=== PATIENT | female | born 1965 | race Caucasian/White ===

== ENCOUNTER 2017-04-20 14:06 | Outpatient (CLI) | payer OTHER ==
[~2017-04-20 14:06] MED LIST: NEURONTIN300 MG PO; TAMOXIFEN CITRA20 MG PO
== END 2017-04-20 14:12 | disposition home or self-care (01) ==
LOC: EKG 14:06
DX: Z01.811 Encounter for preprocedural respiratory examination (principal)

== ENCOUNTER 2017-04-28 05:00 | Day surgery (SDC) | payer OTHER | END 2017-04-28 14:52 | disposition home or self-care (01) | LOC: CIR.AMB 05:00 | DX: N84.0 Polyp of corpus uteri (principal) ==

== ENCOUNTER 2021-05-25 11:00 | Outpatient (CLI) | payer OTHER | END 2021-05-25 11:14 | disposition home or self-care (01) | LOC: SONOGRAMA 11:00 | PROVIDERS: ATTEND Physical Medicine & Rehabilitation | DX: M75.22 Bicipital tendinitis, left shoulder (principal) ==

== ENCOUNTER 2021-09-28 08:26 | Outpatient (CLI) | payer OTHER | END 2021-09-28 08:36 | disposition home or self-care (01) | LOC: RAD 08:26 | PROVIDERS: ATTEND Physical Medicine & Rehabilitation | DX: M54.2 Cervicalgia (principal); M54.6 Pain in thoracic spine ==

== ENCOUNTER 2023-02-10 07:56 | Outpatient (CLI) | payer OTHER | END 2023-02-10 08:06 | disposition home or self-care (01) | LOC: SONOGRAMA 07:56 | PROVIDERS: ATTEND Orthopaedic Surgery | DX: M25.512 Pain in left shoulder (principal) ==

== ENCOUNTER 2024-09-17 07:31 | Outpatient (CLI) | payer OTHER | END 2024-09-17 07:32 | disposition home or self-care (01) | LOC: NUCLEAR 07:31 | PROVIDERS: ATTEND Internal Medicine | DX: I20.9 Angina pectoris, unspecified (principal) | CPT/HCPCS: 78452; 93017; A9500 ==